=== PATIENT | female | born 1950 | race African-American/Black ===

== ENCOUNTER 2017-11-23 16:17 | Emergency (ER) | payer OTHER ==
[2017-11-23 19:17] LABS: ADD MAN DIFF? NO
[2017-11-23 19:20] LABS: BASOPHILS % 0.2 % (0.0-2.0); EOSINOPHILS % 0.1 % (0.0-7.0); HEMATOCRIT 38.8 % (37.0-47.0); HEMOGLOBIN 12.7 g/dl (12.0-16.0); LYMPHOCYTES # 1.2 10^3/ul (0.8-2.9); MEAN CORPUSCULAR HEMOGLOBIN 30.3 pg (29.0-33.0); MEAN CORPUSCULAR HGB CONC 32.7 g/dl (32.0-37.0); MEAN CORPUSCULAR VOLUME 92.6 fl (82.0-101.0); MEAN PLATELET VOLUME 11.2 fl (7.4-10.4); MONOCYTE # 1.4 10^3/ul (0.3-0.9); MONOCYTES % 7.7 % (0.0-11.0); NEUTROPHIL # 14.9 10^3/ul (1.6-7.5); NEUTROPHILS % 84.3 % (39.0-77.0); PLATELET COUNT 201 10^3/UL (140-415); RED BLOOD COUNT 4.19 10^6/ul (4.20-5.40); RED CELL DISTRIBUTION WIDTH 13.8 % (11.5-14.5)
[2017-11-23 19:20] LABS: WHITE BLOOD COUNT 17.7 10^3/ul (4.8-10.8)
[2017-11-23] MEDS ORDERED: LIDOCAINE 1% (MDV) 20 ML INJ (20:00)
[2017-11-23] MEDS: CEFTRIAXONE 1 GM INJ IM (20:15)
== END 2017-11-23 21:00 | disposition home or self-care (01) ==
LOC: E/R 16:17
DX: J18.9 Pneumonia, unspecified organism (principal); J40 Bronchitis, not specified as acute or chronic
CPT/HCPCS: 36415; 71045; 85025; 87400; 96372; 99284-25

== ENCOUNTER 2017-11-29 14:32 | Emergency (ER) | payer OTHER ==
[2017-11-29 18:44] LABS: WHITE BLOOD COUNT 9.7 10^3/ul (4.8-10.8)
[2017-11-29 18:44] LABS: ABNORMAL IP MESSAGE 1; ADD MAN DIFF? NO; HEMATOCRIT 39.1 % (37.0-47.0); HEMOGLOBIN 12.9 g/dl (12.0-16.0); MEAN CORPUSCULAR HEMOGLOBIN 30.3 pg (29.0-33.0); MEAN CORPUSCULAR VOLUME 91.8 fl (82.0-101.0); MEAN PLATELET VOLUME 11.3 fl (7.4-10.4); PLATELET COUNT 334 10^3/UL (140-415); RED BLOOD COUNT 4.26 10^6/ul (4.20-5.40); RED CELL DISTRIBUTION WIDTH 13.6 % (11.5-14.5)
[2017-11-29 18:50] LABS: POSITIVE DIFF @See below
[2017-11-29 19:02] LABS: INR 0.98; PROTIME 13.1 Sec (11.9-14.9)
[2017-11-29 19:03] LABS: PARTIAL THROMBOPLASTIN TIME 30.4 Sec (25.0-35.0)
[2017-11-29 19:09] LABS: ANION GAP 19 (8-16); BLOOD UREA NITROGEN 16 mg/dl (7-20); CALCIUM 9.7 mg/dl (8.4-10.2); CARBON DIOXIDE 30 mmol/L (21-31); CHLORIDE 99 mmol/L (97-110); CREATININE 0.84 mg/dl (0.44-1.00); GLUCOSE 173 mg/dl (70-220); POTASSIUM 3.3 mmol/L (3.5-5.1); SODIUM 145 mmol/L (135-144)
[2017-11-29 19:14] LABS: GIANT THROMBO% (M) 1 % (0-0); LYMPHOCYTES #M 2.1 10^3/ul (0.8-2.9); LYMPHOCYTES % (M) 22 % (15-51); MONOCYTES % (M) 1 % (0-11); PLATELET ESTIMATE NORMAL; SEGMENTED NEUTROPHILS (M) % 77 % (39-77); SMUDGE%M 5 % (0-0)
[2017-11-29 19:20] LABS: B-TYPE NATRIURETIC PEPTIDE 92 PG/ML (0-125)
[2017-11-29 19:22] LABS: TROPONIN-I < 0.012 ng/ml (0.00-0.12)
== END 2017-11-29 21:50 | disposition home or self-care (01) ==
LOC: FTE 14:32
DX: R06.02 Shortness of breath (principal); I10 Essential (primary) hypertension
CPT/HCPCS: 36415; 71045; 80048; 83880; 84484; 85025; 85378; 85610; 85730; 93005; 99285-25